=== PATIENT | male | born 1980 | race Caucasian/White ===

== ENCOUNTER 2024-04-24 13:04 | Outpatient (RCR) | payer OTHER, SELFPAY | END 2024-04-24 23:59 | disposition home or self-care (01) | LOC: RPT 13:04 | PROVIDERS: ATTENDING PHYSICIAN Orthopaedic Surgery Sports Medicine; FAMILY PHYSICIAN Family Medicine | DX: Z47.89 Encounter for other orthopedic aftercare (principal); Z98.890 Other specified postprocedural states; Z73.6 Limitation of activities due to disability; S83.231D Complex tear of medial meniscus, current injury, right knee, subsequent encounter | CPT/HCPCS: 97010; 97110; 97162; 97535 ==

== ENCOUNTER 2024-05-28 16:50 | Outpatient (RCR) | payer OTHER, SELFPAY | END 2024-05-28 23:59 | disposition home or self-care (01) | LOC: RPT 16:50 | PROVIDERS: ATTENDING PHYSICIAN Orthopaedic Surgery Sports Medicine; FAMILY PHYSICIAN Family Medicine | DX: S83.231D Complex tear of medial meniscus, current injury, right knee, subsequent encounter (principal) | CPT/HCPCS: 97010; 97110 ==

== ENCOUNTER 2024-06-25 19:05 | Outpatient (RCR) | payer OTHER, SELFPAY | END 2024-06-25 23:59 | disposition home or self-care (01) | LOC: RPT 19:05 | PROVIDERS: ATTENDING PHYSICIAN Orthopaedic Surgery Sports Medicine; FAMILY PHYSICIAN Family Medicine | DX: Z47.89 Encounter for other orthopedic aftercare (principal); X58.XXXD Exposure to other specified factors, subsequent encounter; Z73.6 Limitation of activities due to disability; Z98.890 Other specified postprocedural states; S83.231D Complex tear of medial meniscus, current injury, right knee, subsequent encounter | CPT/HCPCS: 97110; 97530 ==